=== PATIENT | male | born 2000 | race Hispanic/Latino ===

== ENCOUNTER 2018-06-02 11:06 | Emergency (ER) | payer MEDICAID ==
[2018-06-02] MEDS ORDERED: ONDANSETRON ODT 4 MG TAB ONE (12:18)
== END 2018-06-02 12:35 | disposition home or self-care (01) ==
LOC: EDH 11:06
DX: A09 Infectious gastroenteritis and colitis, unspecified (principal); F41.9 Anxiety disorder, unspecified; Z72.0 Tobacco use

== ENCOUNTER 2018-06-11 23:59 | Emergency (ER) | payer MEDICAID ==
[2018-06-12 00:20] LABS: APPEARANCE,URINE Clear (CLEAR); BILIRUBIN,URINE Negative (NEGATIVE); COLOR,URINE Yellow (YELLOW); GLUCOSE, URINE (UA) Negative (NEGATIVE); KETONES,URINE Negative (NEGATIVE); LEUKOCYTE ESTERASE ,URINE Negative (NEGATIVE); NITRATE,URINE Negative (NEGATIVE); OCCULT BLOOD,URINE Negative (NEGATIVE); PROTEIN,URINE Negative (NEGATIVE); UROBILINOGEN,URINE 0.2 mg/dL (0.2-1.0)
[2018-06-12 00:28] LABS: BASOPHILS % (AUTO) 0.6 % (0.0-5.0); EOSINOPHILS % (AUTO) 3.5 % (0.0-8.0); HEMATOCRIT 37.2 % (42-54); LYMPHOCYTES % (AUTO) 30.9 % (21.0-51.0); MEAN CORPUSCULAR HEMOGLOBIN 26.9 pg (27.0-33.0); MEAN CORPUSCULAR HGB CONC 32.9 g/dL (32.0-36.0); MEAN CORPUSCULAR VOLUME 81.6 fL (80-100); PLATELET COUNT (AUTO) 325 K/uL (130-400); RED BLOOD CELL COUNT(AUTO) 4.56 MIL/uL (4.50-6.20); RED CELL DISTRIBUTION WIDTH 14.4 % (11.0-15.5); WHITE BLOOD COUNT (AUTO) 11.3 K/uL (4.8-10.8)
[2018-06-12 00:50] LABS: ALBUMIN 3.7 g/dL (3.5-5.0); BILIRUBIN,TOTAL 0.1 mg/dL (0.2-1.0)
[2018-06-12] MEDS ORDERED: MORPHINE SULFATE 4 MG/1ML SYG ONE (01:13)
[2018-06-12] MEDS ORDERED: ONDANSETRON HCL 4 MG/2 ML VIAL ONE (01:13)
[2018-06-12] MEDS ORDERED: LIDOCAINE HCL 2% VISCOUS 15 ML UDCUP ONE (02:21)
[2018-06-12] MEDS ORDERED: MAG HYDROX/AL HYDROX/SIMETH ES 30 ML SUSP UDCUP ONE (02:21)
[2018-06-12] MEDS ORDERED: IOHEXOL-350 75 ML VIAL IV ONE (03:35)
== END 2018-06-12 04:51 | disposition home or self-care (01) ==
LOC: EDH 23:59
DX: K52.9 Noninfective gastroenteritis and colitis, unspecified (principal); F41.9 Anxiety disorder, unspecified; E11.9 Type 2 diabetes mellitus without complications; Z72.0 Tobacco use; Z79.899 Other long term (current) drug therapy
CPT/HCPCS: 36415; 74177; 76705; 80053; 81003; 82150; 83690; 85025; 96361; 96374; 96375; 99284; J2270; J2405; Q9967

== ENCOUNTER 2021-01-25 00:44 | Emergency (ER) | payer MEDICAID ==
[~2021-01-25] VITALS: Ht 167.6 cm; Wt 99.8 kg
[2021-01-25] MEDS ORDERED: BUPIVACAINE/PF 0.5% 30ML VIAL ONE (02:33)
[2021-01-25] MEDS ORDERED: AMOX-429 PO (02:47)
[2021-01-25] MEDS ORDERED: IBUP-2071 PO (02:47)
[2021-01-25] MEDS ORDERED: AMPICILLIN/SULBAC 1.5GM VIAL ONE (02:55)
[2021-01-25] MEDS ORDERED: 0.9%NACL 100ML 100 ML ONE (02:56)
[2021-01-25] MEDS ORDERED: AMP/SULBAC 1.5GM+NS 100ML 100 ML IV ONE (03:00)
[2021-01-25 03:17] VITALS: BP 145/86
== END 2021-01-25 03:50 | disposition home or self-care (01) ==
LOC: EDH 00:44
DX: K04.7 Periapical abscess without sinus (principal); E11.9 Type 2 diabetes mellitus without complications; F17.200 Nicotine dependence, unspecified, uncomplicated; Z79.899 Other long term (current) drug therapy
CPT/HCPCS: 64400; 96365; 99284; J0295; S0020; J3490

== ENCOUNTER 2022-01-30 15:39 | Emergency (ER) | payer MEDICAID ==
[~2022-01-30] VITALS: Ht 167.6 cm; Wt 104.3 kg
[~2022-01-30 15:39] MED LIST: AMOX-429 PO; IBUP-2071 PO
[2022-01-30 16:58] LABS: APPEARANCE,URINE CLEAR (CLEAR); BILIRUBIN,URINE NEGATIVE (NEGATIVE); COLOR,URINE LIGHT-YELLOW (YELLOW); GLUCOSE, URINE (UA) NEGATIVE (NEGATIVE); KETONES,URINE NEGATIVE (NEGATIVE); LEUKOCYTE ESTERASE ,URINE NEGATIVE Leu/uL (NEGATIVE); NITRATE,URINE NEGATIVE (NEGATIVE); OCCULT BLOOD,URINE NEGATIVE (NEGATIVE); PH,URINE 5.5 (5.0-8.0); PROTEIN,URINE NEGATIVE (NEGATIVE); UROBILINOGEN,URINE 0.2 mg/dL (0.2-1.0)
[2022-01-30] MEDS ORDERED: KETOROLAC 60 MG VIAL (30MG/ML) IM ONE (17:00)
[2022-01-30 17:01] LABS: MUCUS,URINE RARE LPF (None Seen); RBC,URINE 0-1 /HPF (0-1); WBC,URINE 0-1 /HPF (0-1)
[2022-01-30] MEDS ORDERED: IBUP-2070 PO (17:28)
[2022-01-30 17:51] VITALS: BP 127/71
== END 2022-01-30 17:51 | disposition home or self-care (01) ==
LOC: EDH 15:39
DX: K40.90 Unilateral inguinal hernia, without obstruction or gangrene, not specified as recurrent (principal); F17.200 Nicotine dependence, unspecified, uncomplicated; Z79.899 Other long term (current) drug therapy
CPT/HCPCS: 99284; 74176; 81001; 76870; 96372; J1885

== ENCOUNTER 2022-08-03 12:34 | Observation (INO) | payer MEDICAID ==
[~2022-08-03] VITALS: Ht 167.6 cm; Wt 106.4 kg
[~2022-08-03 12:34] MED LIST changes: +IBUP-2070 PO
[2022-08-03] MEDS ORDERED: ONDANSETRON 4MG INJ IVP ONE (13:30)
[2022-08-03] MEDS ORDERED: 0.9%NACL 1000ML 1,000 ML IV ONE (13:30)
[2022-08-03 13:42] LABS: BASOPHILS % (AUTO) 0.2 % (0.0-5.0); EOSINOPHILS % (AUTO) 0.4 % (0.0-8.0); HEMATOCRIT 38.9 % (42-54); MEAN CORPUSCULAR HEMOGLOBIN 27.7 pg (27.0-33.0); MEAN CORPUSCULAR HGB CONC 33.2 g/dL (32.0-36.0); MEAN CORPUSCULAR VOLUME 83.5 fL (79-99); MONOCYTES % (AUTO) 3.4 % (3.0-13.0); NEUTROPHILS % (AUTO) 91.6 % (40.0-77.0); PLATELET COUNT (AUTO) 249 K/uL (130-400); RED BLOOD CELL COUNT(AUTO) 4.66 MIL/uL (4.50-6.20); RED CELL DISTRIBUTION WIDTH 13.2 % (11.0-15.5); WHITE BLOOD COUNT (AUTO) 15.7 K/uL (4.8-10.8)
[2022-08-03] MEDS ORDERED: ACETAMINOPHEN 500 MG TABLET ONE (13:43)
[2022-08-03 13:52] LABS: CREATININE 1.1 mg/dL (0.5-1.5); POTASSIUM 3.8 mmol/L (3.5-5.1)
[2022-08-03 13:57] LABS: TOTAL PROTEIN, SERUM 8.1 g/dL (6.0-8.3)
[2022-08-03 13:58] LABS: APPEARANCE,URINE CLEAR (CLEAR); BILIRUBIN,URINE NEGATIVE (NEGATIVE); COLOR,URINE LIGHT-YELLOW (YELLOW); GLUCOSE, URINE (UA) NEGATIVE (NEGATIVE); KETONES,URINE NEGATIVE (NEGATIVE); LEUKOCYTE ESTERASE ,URINE NEGATIVE Leu/uL (NEGATIVE); NITRATE,URINE NEGATIVE (NEGATIVE); OCCULT BLOOD,URINE NEGATIVE (NEGATIVE); PROTEIN,URINE NEGATIVE (NEGATIVE); UROBILINOGEN,URINE 0.2 mg/dL (0.2-1.0)
[2022-08-03] MEDS ORDERED: ZOSYN 3.375GM +NS 50ML IVPB ONE (14:00)
[2022-08-03] MEDS ORDERED: [UNRECOGNIZED DRUG - OTHER] IV ONE (14:00)
[2022-08-03] MEDS ORDERED: ACETAMINOPHEN 500 MG TABLET PO ONE (14:00)
[2022-08-03] MEDS ORDERED: IOHEXOL 350 MG/ML 100ML INFUS..BTL IV ONE (14:02)
[2022-08-03] MEDS ORDERED: LABETALOL 20MG SYG IV PRN (15:30)
[2022-08-03] MEDS: ZOSYN 3.375GM +NS 50ML IVPB SCH ×2 (15:30→23:32)
[2022-08-03] MEDS ORDERED: ONDANSETRON 4MG INJ IVP PRN (15:30)
[2022-08-03] MEDS ORDERED: LACTULOSE 20 GM/30 ML UDCUP PO PRN (15:30)
[2022-08-03] MEDS ORDERED: HYDRALAZINE 20MG/ML VIAL IV PRN (15:30)
[2022-08-03] MEDS ORDERED: ALBUTEROL 0.083% 2.5 MG/3 ML INH IH PRN (15:30)
[2022-08-03] MEDS: INSULIN HUMULIN R 100 UNIT/ML 3ML SQ SCH ×2 (16:30→21:00)
[2022-08-03] MEDS: LACTATED RINGERS 1000ML 1,000 ML IV SCH ×2 (17:09→21:36)
[2022-08-03] MEDS ORDERED: SODIUM CHLORIDE 3% FOR INHALATION 4 ML/AMP VIAL.NEB IH ONE (17:23)
[2022-08-03 18:11] VITALS: BP 110/61
[2022-08-03 19:00] VITALS: BP 116/48
[2022-08-03 23:38] VITALS: BP 132/69
[2022-08-04] MEDS: ACETAMINOPHEN 325 MG TAB PO PRN ×3 (00:14→23:19)
[2022-08-04] MEDS ORDERED: SODIUM CHLORIDE 3% FOR INHALATION 4 ML/AMP VIAL.NEB IH ONE ×2 (01:17→06:01)
[2022-08-04 04:00] VITALS: BP 112/59
[2022-08-04 06:36] LABS: BASOPHILS % (AUTO) 0.2 % (0.0-5.0); EOSINOPHILS % (AUTO) 2.2 % (0.0-8.0); HEMATOCRIT 36.6 % (42-54); LYMPHOCYTES % (AUTO) 17.3 % (21.0-51.0); MEAN CORPUSCULAR HEMOGLOBIN 27.4 pg (27.0-33.0); MEAN CORPUSCULAR HGB CONC 32.2 g/dL (32.0-36.0); MEAN CORPUSCULAR VOLUME 85.1 fL (79-99); MONOCYTES % (AUTO) 7.8 % (3.0-13.0); PLATELET COUNT (AUTO) 235 K/uL (130-400); RED CELL DISTRIBUTION WIDTH 13.3 % (11.0-15.5); WHITE BLOOD COUNT (AUTO) 12.2 K/uL (4.8-10.8)
[2022-08-04] MEDS: ZOSYN 3.375GM +NS 50ML IVPB SCH ×3 (06:39→23:40)
[2022-08-04] MEDS: LACTATED RINGERS 1000ML 1,000 ML IV SCH ×3 (06:40→23:40)
[2022-08-04] MEDS: INSULIN HUMULIN R 100 UNIT/ML 3ML SQ SCH ×4 (06:48→20:27)
[2022-08-04 06:55] LABS: PHOSPHORUS 3.4 mg/dL (2.5-4.9); POTASSIUM 3.8 mmol/L (3.5-5.1)
[2022-08-04 07:01] LABS: MAGNESIUM 1.9 mg/dL (1.80-2.40)
[2022-08-04 07:30] VITALS: BP 106/61
[2022-08-04] MEDS: PANTOPRAZOLE 40 MG TAB DR PO SCH (09:12)
[2022-08-04 12:00] VITALS: BP 105/59
[2022-08-04 16:00] VITALS: BP 120/65
[2022-08-04 19:00] VITALS: BP 133/70
[2022-08-05] VITALS: BP 124/76
[2022-08-05 04:00] VITALS: BP 126/73
[2022-08-05] MEDS: INSULIN HUMULIN R 100 UNIT/ML 3ML SQ SCH ×2 (05:33→11:30)
[2022-08-05 05:54] LABS: HEMATOCRIT 37.3 % (42-54); RED BLOOD CELL COUNT(AUTO) 4.55 MIL/uL (4.50-6.20); RED CELL DISTRIBUTION WIDTH 13.3 % (11.0-15.5); WHITE BLOOD COUNT (AUTO) 7.4 K/uL (4.8-10.8)
[2022-08-05 06:20] LABS: POTASSIUM 3.6 mmol/L (3.5-5.1)
[2022-08-05] MEDS: ZOSYN 3.375GM +NS 50ML IVPB SCH (06:47)
[2022-08-05] MEDS: LACTATED RINGERS 1000ML 1,000 ML IV SCH (06:47)
[2022-08-05 07:30] VITALS: BP 116/69
[2022-08-05] MEDS ORDERED: ENOXAPARIN SODIUM 40 MG/0.4 ML SYRINGE SQ SCH (09:00)
[2022-08-05] MEDS: PANTOPRAZOLE 40 MG TAB DR PO SCH (10:26)
[2022-08-05 12:00] VITALS: BP 118/59
[2022-08-05] MEDS ORDERED: DOXY100T21 PO (14:55)
[2022-08-05 16:00] VITALS: BP 102/86
== END 2022-08-05 17:15 | disposition home or self-care (01) ==
LOC: EDH 12:34 → EDHIP 12:35 → 3CH 18:00
PROVIDERS: ADMIT Internal Medicine; ATTEND Internal Medicine
DX: A41.9 Sepsis, unspecified organism (principal); Z20.822 Contact with and (suspected) exposure to COVID-19; D72.829 Elevated white blood cell count, unspecified; E66.01 Morbid (severe) obesity due to excess calories; D64.9 Anemia, unspecified; K76.0 Fatty (change of) liver, not elsewhere classified; G89.28 Other chronic postprocedural pain; K40.90 Unilateral inguinal hernia, without obstruction or gangrene, not specified as recurrent; Z68.38 Body mass index [BMI] 38.0-38.9, adult; Z79.899 Other long term (current) drug therapy; Z98.890 Other specified postprocedural states
CPT/HCPCS: 96361; 96365; 96366 ×3; 96375; 99285; 80053; 85025 ×2; 87040 ×2; 87880; 87804 ×2; 82948 ×9; 83605 ×2; 81003; 36415 ×3; 87635; 71045; 74177; 94640 ×2; 83735 ×2; 84100; 80048 ×2; 87071; 87205; 93970; 84145; 96372; 85027; G0378 ×49; C9803; J2405; J2543 ×6; Q9967; J1650

== ENCOUNTER 2024-11-13 20:20 | Emergency (ER) | payer SELFPAY ==
[~2024-11-13] VITALS: Ht 180.3 cm; Wt 103.4 kg
[~2024-11-13 20:20] MED LIST changes: -AMOX-429 PO; +DOXY100T21 PO; -IBUP-2070 PO; -IBUP-2071 PO
[2024-11-13 20:32] VITALS: BP 138/81; PULSE 100; RESP 20; TEMP 99.4; O2SAT 97
[2024-11-13] MEDS ORDERED: CIPOTIC AS (20:58)
[2024-11-13] MEDS ORDERED: IBUP-2077 PO (20:58)
--- NOTE | 2024-11-13 20:59 | ERN ---
ED Note History of Present Illness Stated Complaint: C/O LEFT EARACHE X 2 DAYS Chief Complaint: Earache Time Seen by MD: 20:27 Dictation: PATIENT IS A 24-YEAR-OLD MALE COMING IN TODAY WITH LEFT EAR PAIN ONSET WAS TWO DAYS PRIOR TO ARRIVAL. HE STATES HE HAD GONE SWIMMING AT [employer] ON TUESDAY IN [place] AND HAD SWABS FOR A LONG TIME IN THE WATER. NO FEVER NO CHILLS NO NAUSEA VOMITING NO HEARING LOSS. Allergies: Coded Allergies: No Known Allergies (Unverified Allergy, Unknown, 01/25/21) Home Meds Active Scripts Doxycycline Monohydrate (Doxycycline Monohydrate) 100 Mg Tablet, 100 MG PO BID for 5 Days, #10 TAB 0 Refills Prov:EDUARDO GONZALEZ NP 08/05/22 Past Medical History Past Medical History: No Pertinent History Additional Past Medical Hx: PREDIABETES Surgical History: Other Surgical History Other: HERNIA REPAIR 2 MOS AGO Family History: Negative Social History: Smokers, ETOH, Negative RN Note Reviewed/Agreed w/PFSH: Yes Review of System Dictation CONSTITUTIONAL: NEGATIVE EXCEPT FOR HPI HEAD/FACE: NEGATIVE EXCEPT FOR HPI EENT: NEGATIVE EXCEPT FOR HPI LEFT EAR PAIN RESPIRATORY: NEGATIVE EXCEPT FOR HPI GASTROINTESTINAL/ABDOMINAL: NEGATIVE EXCEPT FOR HPI GENITOURINARY: NEGATIVE EXCEPT FOR HPI MUSCULOSKELETAL: NEGATIVE EXCEPT FOR HPI INTEGUMENTARY: NEGATIVE EXCEPT FOR HPI NEUROLOGICAL/PSYCH: NEGATIVE EXCEPT FOR HPI HEMATOLOGIC/LYMPHATIC: NEGATIVE EXCEPT FOR HPI ALL SYSTEMS NEGATIVE, EXCEPT NOTED ABOVE. 13 POINT REVIEW OF SYSTEMS ASSESSED AND ALL NEGATIVE EXCEPT FOR ABOVE. Initial Vital Sign VS Vital Signs Date Time Temp Pulse Resp B/P (MAP) Pulse Ox O2 Delivery O2 Flow Rate FiO2 11/13/24 20:21 99.3 100 20 138/81 97 Room Air 11/13/24 20:32 0 21 Physical Exam Dictation VITAL SIGNS REVIEWED GENERAL APPEARANCE: ALERT, ORIENTED X 3, SEVERE ACUTE DISTRESS, WELL DEVELOPED, NOURISHED. HEAD AND FACE: NON-TRAUMATIC. EYES: PERRL, PINK CONJUNCTIVAS, EYELID NO TRAUMA, ANTERIOR CHAMBER WITH ARCUS SENILIS. EARS: PINNAS INTACT AND NO SIGNS OF TRAUMA OR LEFT OTIC CANAL WITH ERYTHEMA SWELLING TENDERNESS. UNABLE TO VISUALIZE TM. NO MASTOID TENDERNESS BILATERALLY NOSE: NO DISCHARGE, NO BLEEDING. OROPHARYNX: MOUTH NORMAL, TONGUE PINK, PHARYNX CLEAR,NO ERYTHEMA, TONSILS NO EXUDATES, NO ABSCESSES NOTED, MUCOUS MEMBRANE MOIST NECK: SUPPLE, NON-TENDER, NO THYROMEGALY, NO MASSES, NO JVD, NO BRUITS BREAST:DEFERRED CHEST:NO TENDERNESS, NO CREPITUS, NO PARADOXICAL MOVEMENT, NO RETRACTIONS LUNGS:CLEAR, WELL-VENTILATED, SYMMETRIC, NO RALES, NO WHEEZING, NO RHONCHI, NO STRIDOR, GOOD BREATH SOUNDS BILATERALLY HEART: REGULAR RATE, REGULAR RHYTHM, NO MURMUR, NO GALLOPS VASCULAR: NO PERIPHERAL EDEMA, ABDOMEN: SOFT, POSITIVE BOWEL SOUNDS, NONDISTENDED, NO GUARDING, NONTENDER, NO REBOUND, NO MASSES NO HEPATOMEGALY, NO SPLENOMEGALY, NO YEAGER'S SIGN, NO HERNIAS. RECTAL: DEFERRED GENITAL: DEFERRED NEUROLOGICAL: NORMAL SPEECH, MOTOR FUNCTION INTACT, SENSORY FUNCTION INTACT MUSCULOSKELETAL: NECK NONTENDER, FULL RANGE OF MOTION, BACK NONTENDER, FULL RANGE OF MOTION, EXTREMITIES: NONTENDER, FULL RANGE OF MOTION SKIN: COLOR PINK, DRY, NO TURGOR, NO RASH, NO LACERATIONS, NO ABRASIONS, NO CONTUSIONS. LYMPHATIC: DEFERRED Results (Laboratory/Radiology) Labs Reviewed?: Yes ED Course ED Course Orders Procedure Category Date Status Time Hydrocodone/Apap PHA 11/13/24 Transmitted 5/325 ([place] 5/325mg) 21:00 Ceftriaxone 1g Vial PHA 11/13/24 Transmitted (Rocephine 1g Inj) 21:00 Ibuprofen 800 Mg Tab PHA 11/13/24 Transmitted (Motrin) 21:00 Vital Signs Date Time Temp Pulse Resp B/P (MAP) Pulse Ox O2 Delivery O2 Flow Rate FiO2 11/13/24 20:32 99.3 100 20 138/81 97 Room Air* 0 21 11/13/24 20:21 99.3 100 20 138/81 97 Room Air 2050/NO LABS OR IMAGING INDICATED. WE WILL TREAT PATIENT EMPIRICALLY FOR OTITIS EXTERNA. PATIENT GIVEN IBUPROFEN/NORCO/ROCEPHIN TOLD STOP [id number] HOMEOPATHIC DROPS WE WILL INITIATE CIPRODEX OTIC Medical Decision Making MDM MEDICAL DECISION-MAKING BASED ON EMPIRIC TREATMENT FOR A LEFT OTITIS EXTERNA PATIENT TO TOLD TO STOP [id number] HOMEOPATHIC DROPS RECEIVED ROCEPHIN/NORCO/IBUPROFEN FOR PAIN PATIENT PRESCRIBED CIPRODEX OTIC AND IBUPROFEN TOLD FOLLOW UP WITH HIS PRIMARY CARE DOCTOR FOR REFERRAL IN 1-2 DAYS TO ENT IF NOT BETTER DX & DISP Disposition: Discharge Departure Impression: Primary Impression: Diffuse otitis externa, left ear Condition: Stable Scripts Ibuprofen (Ibuprofen 800 mg Tab) 800 Mg Tab 800 MG PO Q8H PRN for fever or pain, #30 TAB 0 Refills Prov: DAVID SHI NP 11/13/24 Ciprofloxacin HCl/Hc (Cipro Hc Otic Susp) 0.2 %-1 % Otsus 3 DROP BID for LEFT EAR for 7 Days, #10 ML 0 Refills SHAKE WELL AND INSTILL 3-4 DROPS LEFT EAR TWICE A DAY FOR SEVEN DAYS. USE COTTON WITH APPLICATION OF DROPS. Prov: DAVID SHI NP 11/13/24 Additional Instructions: FOLLOW-UP WITH PRIMARY CARE PROVIDER IN 1 TO 2 DAYS. TAKE MEDICATIONS DIRECTED HERE IN THE EMERGENCY ROOM. OKAY TO CONTINUE HOME MEDICATIONS UNLESS OTHERWISE DISCUSSED DURING YOUR VISIT IN THE EMERGENCY ROOM TODAY. RETURN TO YOUR NEAREST EMERGENCY ROOM IF SYMPTOMS WORSEN OR IF THERE IS NO IMPROVEMENT. CALL 911 IF YOU NEED IMMEDIATE ASSISTANCE. TAKE TYLENOL OR MOTRIN [id number] NEEDED AND IF NO CONTRAINDICATIONS ARE PRESENT. INCREASE ORAL HYDRATION. A WOUND CULTURE OR URINE CULTURE WAS ORDERED HERE IN THE EMERGENCY ROOM DEPARTMENT PLEASE FOLLOW-UP WITH PRIMARY CARE PROVIDER AND ADVISE THEM TO GET REPEAT PORTS FROM OUR FACILITY. IF YOU HAD ANY JEET WRAP/SPLINTS THAT WERE APPLIED HERE, PLEASE DO NOT REMOVE THEM UNTIL YOU SEE YOUR PRIMARY CARE OR SPECIALTY. STOP [id number] EAR DROPS. USE CIPRO OTIC DROPS DIRECTED WITH COTTON TWICE A DAY FOR THE NEXT SEVEN DAYS. TAKE IBUPROFEN EVERY 6-8 HOURS NEEDED WITH FOOD FOR PAIN. KEEP YOUR LEFT EAR CLEAN AND DRY AND SEE YOUR PRIMARY CARE DOCTOR FOR FOLLOW UP AND REFERRAL TO ENT SPECIALIST IN 2-3 DAYS IF NOT BETTER. Referrals: JANY BRAUN MD (PCP) Time of Disposition: 20:56 I have reviewed the case, and I agree with, Diagnosis and Plan DAVID SHI NP Nov 13, 2024 20:59
[2024-11-13] MEDS: HYDROcodone/APAP 5/325 1 TAB TABLET PO ONE (21:03)
== END 2024-11-13 21:14 | disposition home or self-care (01) ==
LOC: EDH 20:20
DX: H60.312 Diffuse otitis externa, left ear (principal); F17.200 Nicotine dependence, unspecified, uncomplicated; Z98.890 Other specified postprocedural states; Z79.899 Other long term (current) drug therapy
CPT/HCPCS: 99283; 96372; J0696